=== PATIENT | female | born 1985 | race Hispanic/Latino ===

== ENCOUNTER 2023-08-23 08:42 | Emergency (ER) | payer MEDICAID ==
[~2023-08-23] VITALS: Ht 165.1 cm; Wt 122.5 kg
[2023-08-23] MEDS: IBUPROFEN 600 MG TABLET PO ONE (09:25)
[2023-08-23] MEDS: ACETAMINOPHEN 500 MG TABLET PO ONE (09:26)
[2023-08-23 10:06] LABS: BASOPHILS # (AUTO) 0.08 K/uL (0.00-0.20); BASOPHILS % (AUTO) 0.4 % (0.0-5.0); EOSINOPHILS # (AUTO) 0.47 K/uL (0.00-0.70); EOSINOPHILS % (AUTO) 2.6 % (0.0-8.0); HEMATOCRIT 32.4 % (36-48); IMMATURE GRANULOCYTE ABSOLUTE 0.19 K/uL (0-1); LYMPHOCYTES # (AUTO) 4.5 K/uL (1.0-4.8); LYMPHOCYTES % (AUTO) 24.1 % (21.0-51.0); MEAN CORPUSCULAR HEMOGLOBIN 28.5 pg (27.0-33.0); MEAN CORPUSCULAR HGB CONC 32.4 g/dL (32.0-36.0); MEAN CORPUSCULAR VOLUME 87.8 fL (79-99); MONOCYTES # (AUTO) 1.2 K/uL (0.1-1.0); MONOCYTES % (AUTO) 6.4 % (3.0-13.0); NEUTROPHILS # (AUTO) 12.1 K/uL (1.8-7.7); NEUTROPHILS % (AUTO) 65.5 % (40.0-77.0); PLATELET COUNT (AUTO) 376 K/uL (130-400); RED BLOOD CELL COUNT(AUTO) 3.69 MIL/uL (4.00-5.50); RED CELL DISTRIBUTION WIDTH 14.6 % (11.0-15.5); WHITE BLOOD COUNT (AUTO) 18.4 K/uL (4.8-10.8)
[2023-08-23 10:14] LABS: CREATININE 1.1 mg/dL (0.5-1.0); POTASSIUM 4.7 mmol/L (3.5-5.1)
[2023-08-23 10:41] VITALS: BP 98/66; PULSE 84; RESP 16; O2SAT 96
== END 2023-08-23 11:10 | disposition home or self-care (01) ==
LOC: EDH 08:42
DX: R56.9 Unspecified convulsions (principal); D72.829 Elevated white blood cell count, unspecified; I10 Essential (primary) hypertension; E11.9 Type 2 diabetes mellitus without complications; Z90.49 Acquired absence of other specified parts of digestive tract; Z88.8 Allergy status to other drugs, medicaments and biological substances
CPT/HCPCS: 36415; 80048; 83605; 84145; 85025; 87040